=== PATIENT | female | born 1975 | race African-American/Black ===

== ENCOUNTER 2017-06-27 17:09 | Inpatient (IN) | payer MEDICAID, OTHER ==
[2017-06-27] VITALS (20 sets, daily range): BP systolic 54–172; BP diastolic 20–88
[~2017-06-27] VITALS: Ht 162.6 cm; Wt 81.6 kg
[2017-06-27] MEDS ORDERED: IPRATROPIUM BROMIDE (0.02%) 0.5MG/2.5ML NEB HHN STA (17:22)
[2017-06-27] MEDS ORDERED: ALBUTEROL (0.083%) 2.5MG/3ML NEB HHN STA (17:22)
[2017-06-27] MEDS ORDERED: ETOMIDATE 2MG/ML 10ML VIAL IV ONE ×2 (17:30→20:00)
[2017-06-27] MEDS ORDERED: PIPERACILLIN SODIUM/TAZOBACTAM 4.5 G in DEXT 5% WATER 100 ML IV SCH (17:30)
[2017-06-27] MEDS ORDERED: MIDAZOLAM HCL 50 MG in DEXTROSE 5% WATER 40 ML IV ONE ×2 (17:30→21:00)
[2017-06-27] MEDS ORDERED: VANCOMYCIN 1 G PREMIX 200 ML IV SCH (17:30)
[2017-06-27] MEDS ORDERED: VECURONIUM BROMIDE 10 MG/VIAL IV ONE ×2 (17:30→20:00)
[2017-06-27 18:00] LABS: CHLORIDE 103 mEq/L (98-107)
[2017-06-27 18:01] LABS: INR 1.7; PROTHROMBIN TIME 17.6 sec (9.4-11.6)
[2017-06-27 18:10] LABS: CARBON DIOXIDE 22 mEq/L (21-32); TROPONIN I < 0.02 ng/mL (0.00-0.04)
[2017-06-27] MEDS ORDERED: NOREPINEPHRINE 4 MG in DEXT 5% WATER 246 ML IV ONE (19:00)
[2017-06-27] MEDS ORDERED: SODIUM CHLORIDE 0.9% 1000ML BAG (SEPSIS BOLUS) IV ONE (19:00)
[2017-06-27] MEDS ORDERED: SODIUM CHLORIDE 0.9% 1,000 ML IV ONE (19:00)
[2017-06-27 19:02] LABS: BG BASE EXCESS -6.3 mmol/L (-2.0-2.0); BG CARBOXYHEMOGLOBIN 0.3 % (0.5-1.5); BG DEOXYHEMOGLOBIN 1.8 % (0.0-5.0); BG FRACTION INSPIRED OXYGEN 100; BG HCO3 ACT 20.5 mmol/L (22.0-26.0); BG METHEMOGLOBIN 0.7 % (0.0-1.5); BG OXYGEN SATURATION 98.2 % (92.0-98.5); BG OXYHEMOGLOBIN 97.2 % (94.0-97.0); BG PCO2 48.4 mmHg (35.0-45.0); BG PH 7.245 (7.350-7.450); BG PO2 139.2 mmHg (75.0-100.0); BG SAMPLE SITE RIGHT RADIAL; BG TIDAL VOLUME(mL) 550 mL; BG TOTAL HEMOGLOBIN 6.8 g/dL (12.0-18.0); BG VENT MODE VENT - A/C; BG VENT RATE 16 set
[2017-06-27] MEDS ORDERED: NOREPINEPHRINE 4 MG in DEXT 5% WATER 246 ML IV NR (19:15)
[2017-06-27 19:19] LABS: MEAN CORPUSCULAR HEMOGLOBIN 30.5 pg (28.0-32.0); RED BLOOD CELL COUNT 1.92 mill/uL (4.2-5.4); RED CELL DISTRIBUTION WIDTH 14.2 % (11.6-14.6)
[2017-06-27 19:23] LABS: CLARITY URINE CLOUDY (CLEAR); COLOR URINE DARK YELLOW (YELLOW); GLUCOSE URINE NEGATIVE (NEGATIVE); KETONES URINE 1+ (NEGATIVE); LEUKOCYTE ESTERASE URINE 2+ (NEGATIVE); NITRITE URINE POSITIVE (NEGATIVE); OCCULT BLOOD URINE 1+ (NEGATIVE); PROTEIN URINE 2+ (NEGATIVE); SPECIFIC GRAVITY URINE 1.017 (1.005-1.030)
[2017-06-27 19:26] LABS: HEMATOCRIT. 17.7 % (36.0-48.0)
[2017-06-27 19:27] LABS: HEMOGLOBIN. 5.9 g/dL (12.0-16.0); PLATELET 17 x1000/uL (130-400)
[2017-06-27] MEDS ORDERED: MIDAZOLAM HCL 50 MG in DEXTROSE 5% WATER 50ML IV SCH (20:45)
[2017-06-27 20:59] LABS: PLATELET ESTIMATE MARKEDLY DECREASED
[2017-06-27] MEDS ORDERED: MORPHINE SULFATE 4 MG/ML CPJ (NOT FOR IM USE) IV PRN (22:30)
[2017-06-27] MEDS: PROPOFOL 10MG/ML 100ML 100 ML IV PRN (22:32)
[2017-06-27] MEDS: SODIUM CHLORIDE 0.9% 1,000 ML IV SCH (23:25)
[2017-06-27] MEDS: PHENYLEPHRINE 40 MG in DEXT 5% WATER 246 ML IV PRN (23:30)
[2017-06-28] VITALS (101 sets, daily range): BP systolic 59–121; BP diastolic 25–79
[2017-06-28] MEDS: PHENYLEPHRINE 40 MG in DEXT 5% WATER 246 ML IV PRN ×5 (03:29→20:34)
[2017-06-28 05:48] LABS: HEMATOCRIT. 32.1 % (36.0-48.0); HEMOGLOBIN. 10.9 g/dL (12.0-16.0); MEAN CORPUSCULAR HEMOGLOBIN 30.3 pg (28.0-32.0); MEAN CORPUSCULAR VOLUME 89.3 fL (81.0-99.0); RED BLOOD CELL COUNT 3.59 mill/uL (4.2-5.4); RED CELL DISTRIBUTION WIDTH 15.4 % (11.6-14.6)
[2017-06-28 06:05] LABS: PLATELET 11 x1000/uL (130-400)
[2017-06-28 06:36] LABS: CHLORIDE 104 mEq/L (98-107)
[2017-06-28] MEDS ORDERED: PIPERACILLIN SODIUM/TAZOBACTAM 4.5 G in DEXT 5% WATER 100 ML IV SCH (06:45)
[2017-06-28] MEDS ORDERED: METRONIDAZOLE 500 MG PREMIX 100 ML IV SCH (06:45)
[2017-06-28 07:05] LABS: CARBON DIOXIDE 19 mEq/L (21-32)
[2017-06-28 07:10] LABS: PLATELET ESTIMATE MARKEDLY DECREASED
[2017-06-28] MEDS: NOREPINEPHRINE 8 MG in DEXT 5% WATER 242 ML IV PRN ×2 (07:34→15:27)
[2017-06-28 07:39] LABS: BG BASE EXCESS -6.3 mmol/L (-2.0-2.0); BG CARBOXYHEMOGLOBIN 0.3 % (0.5-1.5); BG DEOXYHEMOGLOBIN 1.3 % (0.0-5.0); BG FRACTION INSPIRED OXYGEN 100; BG HCO3 ACT 20.3 mmol/L (22.0-26.0); BG METHEMOGLOBIN 0.6 % (0.0-1.5); BG OXYGEN SATURATION 98.7 % (92.0-98.5); BG OXYHEMOGLOBIN 97.8 % (94.0-97.0); BG PCO2 44.8 mmHg (35.0-45.0); BG PH 7.274 (7.350-7.450); BG PO2 154.6 mmHg (75.0-100.0); BG SAMPLE SITE RIGHT BRACHIAL; BG TIDAL VOLUME(mL) 550 mL; BG TOTAL HEMOGLOBIN 11.8 g/dL (12.0-18.0); BG VENT MODE VENT - A/C; BG VENT RATE 16 set
[2017-06-28] MEDS: PROPOFOL 10MG/ML 100ML 100 ML IV PRN (08:38)
[2017-06-28] MEDS: SODIUM CHLORIDE 0.9% 1,000 ML IV SCH ×3 (08:39→22:16)
[2017-06-28] MEDS ORDERED: VANCOMYCIN 1250MG in DEXTROSE 5% WATER 250ML IV NR (09:00)
[2017-06-28] MEDS: MEROPENEM 1,000 MG in SODIUM CHLORIDE 0.9% 100 ML IV SCH ×2 (11:15→17:51)
[2017-06-28] MEDS ORDERED: PROPOFOL 10MG/ML 100ML 100 ML IV PRN (11:15)
[2017-06-28] MEDS: PANTOPRAZOLE SODIUM 40 MG/VIAL IV SCH (12:24)
[2017-06-28] MEDS: IPRATROPIUM/ALBUTEROL 0.5-3(2.5)MG/3ML NEB HHN SCH ×2 (15:35→19:58)
[2017-06-28] MEDS: VANCOMYCIN 750 MG PREMIX 150 ML IV SCH (16:35)
[2017-06-28] MEDS: MORPHINE SULFATE 2 MG/ML CPJ (NOT FOR IM USE) IV PRN (19:31)
[2017-06-29] VITALS (101 sets, daily range): BP systolic 86–143; BP diastolic 51–136
[2017-06-29] MEDS: VANCOMYCIN 750 MG PREMIX 150 ML IV SCH ×2 (00:45→09:14)
[2017-06-29] MEDS: HYDROMORPHONE HCL/PF 2MG/ML CPJ IM PRN ×3 (00:46→19:44)
[2017-06-29] MEDS: PHENYLEPHRINE 40 MG in DEXT 5% WATER 246 ML IV PRN ×6 (01:06→21:45)
[2017-06-29] MEDS: MEROPENEM 1,000 MG in SODIUM CHLORIDE 0.9% 100 ML IV SCH ×3 (02:00→18:59)
[2017-06-29] MEDS: PROPOFOL 10MG/ML 100ML 100 ML IV PRN ×2 (02:01→10:09)
[2017-06-29] MEDS: IPRATROPIUM/ALBUTEROL 0.5-3(2.5)MG/3ML NEB HHN SCH ×4 (02:20→20:30)
[2017-06-29 07:09] LABS: HEMATOCRIT. 29.8 % (36.0-48.0); MEAN CORPUSCULAR HEMOGLOBIN 29.7 pg (28.0-32.0); MEAN CORPUSCULAR VOLUME 87.9 fL (81.0-99.0); MEAN PLATELET VOLUME 8.9 fl (7.4-10.4); RED BLOOD CELL COUNT 3.39 mill/uL (4.2-5.4); RED CELL DISTRIBUTION WIDTH 15.5 % (11.6-14.6)
[2017-06-29 07:17] LABS: PLATELET 11 x1000/uL (130-400)
[2017-06-29 07:20] LABS: CARBON DIOXIDE 18 mEq/L (21-32); CHLORIDE 103 mEq/L (98-107)
[2017-06-29 08:27] LABS: BG BASE EXCESS -8.6 mmol/L (-2.0-2.0); BG CARBOXYHEMOGLOBIN 0.3 % (0.5-1.5); BG DEOXYHEMOGLOBIN 5.2 % (0.0-5.0); BG FRACTION INSPIRED OXYGEN 50; BG METHEMOGLOBIN 0.4 % (0.0-1.5); BG OXYGEN SATURATION 94.8 % (92.0-98.5); BG OXYHEMOGLOBIN 94.1 % (94.0-97.0); BG PCO2 35.5 mmHg (35.0-45.0); BG PH 7.298 (7.350-7.450); BG PO2 74.6 mmHg (75.0-100.0); BG SAMPLE SITE RIGHT BRACHIAL; BG TIDAL VOLUME(mL) 550 mL; BG TOTAL HEMOGLOBIN 11.1 g/dL (12.0-18.0); BG VENT MODE VENT - A/C; BG VENT RATE 16 set
[2017-06-29 08:31] LABS: PHOSPHORUS 3.3 mg/dL (2.5-4.9)
[2017-06-29] MEDS: PANTOPRAZOLE SODIUM 40 MG/VIAL IV SCH (09:13)
[2017-06-29] MEDS ORDERED: LORAZEPAM 2MG/ML CPJ IV PRN (10:30)
[2017-06-29] MEDS: NOREPINEPHRINE 8 MG in DEXT 5% WATER 242 ML IV PRN (12:06)
[2017-06-29 12:25] LABS: PLATELET ESTIMATE MARKEDLY DECREASED
[2017-06-29] MEDS ORDERED: MAGNESIUM 2 G PREMIX 50 ML IV NR (13:00)
[2017-06-29] MEDS ORDERED: KCL 20MEQ/100ML PREMIX 100 ML IV NR (13:00)
[2017-06-29] MEDS: SODIUM CHLORIDE 0.9% 1,000 ML IV SCH (14:25)
[2017-06-29] MEDS: FENTANYL CITRATE/PF 500 MCG in SODIUM CHLORIDE 0.9% 40 ML IV PRN (15:11)
[2017-06-30] VITALS (97 sets, daily range): BP systolic 89–131; BP diastolic 58–88
[2017-06-30] MEDS: FENTANYL CITRATE/PF 500 MCG in SODIUM CHLORIDE 0.9% 40 ML IV PRN ×3 (00:15→16:52)
[2017-06-30] MEDS: MEROPENEM 1,000 MG in SODIUM CHLORIDE 0.9% 100 ML IV SCH ×3 (01:34→17:26)
[2017-06-30] MEDS: SODIUM CHLORIDE 0.9% 1,000 ML IV SCH ×3 (01:34→21:42)
[2017-06-30] MEDS: IPRATROPIUM/ALBUTEROL 0.5-3(2.5)MG/3ML NEB HHN SCH ×4 (01:34→20:29)
[2017-06-30] MEDS: PHENYLEPHRINE 40 MG in DEXT 5% WATER 246 ML IV PRN ×6 (01:42→21:38)
[2017-06-30] MEDS: HYDROMORPHONE HCL/PF 2MG/ML CPJ IM PRN (03:19)
[2017-06-30 04:55] LABS: HEMATOCRIT. 31.3 % (36.0-48.0); HEMOGLOBIN. 10.6 g/dL (12.0-16.0); MEAN CORPUSCULAR HEMOGLOBIN 29.9 pg (28.0-32.0); MEAN CORPUSCULAR VOLUME 88.8 fL (81.0-99.0); MEAN PLATELET VOLUME 9.3 fl (7.4-10.4); RED BLOOD CELL COUNT 3.53 mill/uL (4.2-5.4); RED CELL DISTRIBUTION WIDTH 15.5 % (11.6-14.6)
[2017-06-30 05:04] LABS: PLATELET 4 x1000/uL (130-400)
[2017-06-30 05:06] LABS: CARBON DIOXIDE 20 mEq/L (21-32); CHLORIDE 105 mEq/L (98-107)
[2017-06-30 07:24] LABS: PLATELET ESTIMATE MARKEDLY DECREASED
[2017-06-30 07:39] LABS: BG BASE EXCESS -8.2 mmol/L (-2.0-2.0); BG CARBOXYHEMOGLOBIN 0.1 % (0.5-1.5); BG DEOXYHEMOGLOBIN 2.4 % (0.0-5.0); BG HCO3 ACT 17.2 mmol/L (22.0-26.0); BG METHEMOGLOBIN 0.4 % (0.0-1.5); BG OXYGEN SATURATION 97.6 % (92.0-98.5); BG OXYHEMOGLOBIN 97.1 % (94.0-97.0); BG PCO2 34.7 mmHg (35.0-45.0); BG PH 7.312 (7.350-7.450); BG PO2 106.1 mmHg (75.0-100.0); BG SAMPLE SITE RIGHT BRACHIAL; BG TIDAL VOLUME(mL) 550 mL; BG VENT MODE VENT - A/C; BG VENT RATE 16 set
[2017-06-30] MEDS: PANTOPRAZOLE SODIUM 40 MG/VIAL IV SCH (09:39)
[2017-06-30] MEDS: MORPHINE SULFATE 2 MG/ML CPJ (NOT FOR IM USE) IV PRN (23:13)
[2017-07-01] VITALS (93 sets, daily range): BP systolic 87–113; BP diastolic 46–75
[2017-07-01] MEDS: PHENYLEPHRINE 40 MG in DEXT 5% WATER 246 ML IV PRN ×6 (01:52→23:17)
[2017-07-01] MEDS: MEROPENEM 1,000 MG in SODIUM CHLORIDE 0.9% 100 ML IV SCH ×3 (02:04→17:33)
[2017-07-01] MEDS: IPRATROPIUM/ALBUTEROL 0.5-3(2.5)MG/3ML NEB HHN SCH ×4 (02:24→20:28)
[2017-07-01] MEDS: FENTANYL CITRATE/PF 500 MCG in SODIUM CHLORIDE 0.9% 40 ML IV PRN ×3 (03:51→21:26)
[2017-07-01] MEDS: MORPHINE SULFATE 2 MG/ML CPJ (NOT FOR IM USE) IV PRN ×2 (05:05→23:25)
[2017-07-01 05:42] LABS: HEMATOCRIT. 27.3 % (36.0-48.0); HEMOGLOBIN. 9.4 g/dL (12.0-16.0); MEAN CORPUSCULAR HEMOGLOBIN 30.5 pg (28.0-32.0); MEAN CORPUSCULAR VOLUME 88.4 fL (81.0-99.0); MEAN PLATELET VOLUME 10.2 fl (7.4-10.4); RED BLOOD CELL COUNT 3.08 mill/uL (4.2-5.4); RED CELL DISTRIBUTION WIDTH 15.2 % (11.6-14.6)
[2017-07-01 05:47] LABS: PLATELET 10 x1000/uL (130-400)
[2017-07-01 06:08] LABS: CARBON DIOXIDE 20 mEq/L (21-32); CHLORIDE 108 mEq/L (98-107)
[2017-07-01 06:56] LABS: PLATELET ESTIMATE MARKEDLY DECREASED
[2017-07-01] MEDS: PANTOPRAZOLE SODIUM 40 MG/VIAL IV SCH (08:41)
[2017-07-01] MEDS: SODIUM CHLORIDE 0.9% 1,000 ML IV SCH ×3 (08:41→21:55)
[2017-07-01] MEDS ORDERED: POTASSIUM CHLORIDE INJ 40 MEQ in DEXT 5% WATER 250 ML IV SCH (13:00)
[2017-07-02] VITALS (96 sets, daily range): BP systolic 71–124; BP diastolic 42–84
[2017-07-02] MEDS: MEROPENEM 1,000 MG in SODIUM CHLORIDE 0.9% 100 ML IV SCH ×2 (01:43→10:27)
[2017-07-02] MEDS: IPRATROPIUM/ALBUTEROL 0.5-3(2.5)MG/3ML NEB HHN SCH ×4 (02:34→20:20)
[2017-07-02] MEDS: FENTANYL CITRATE/PF 1,000 MCG in SODIUM CHLORIDE 0.9% 80 ML IV PRN ×2 (03:12→12:42)
[2017-07-02] MEDS: PHENYLEPHRINE 40 MG in DEXT 5% WATER 246 ML IV PRN ×5 (03:58→21:29)
[2017-07-02] MEDS: HYDROMORPHONE HCL/PF 2MG/ML CPJ IM PRN (06:21)
[2017-07-02] MEDS: SODIUM CHLORIDE 0.9% 1,000 ML IV SCH (08:01)
[2017-07-02] MEDS: MORPHINE SULFATE 2 MG/ML CPJ (NOT FOR IM USE) IV PRN (08:02)
[2017-07-02] MEDS: PANTOPRAZOLE SODIUM 40 MG/VIAL IV SCH (08:03)
[2017-07-02 08:33] LABS: BG BASE EXCESS -7.2 mmol/L (-2.0-2.0); BG DEOXYHEMOGLOBIN 1.5 % (0.0-5.0); BG FRACTION INSPIRED OXYGEN 40; BG HCO3 ACT 17.8 mmol/L (22.0-26.0); BG METHEMOGLOBIN 0.4 % (0.0-1.5); BG OXYGEN SATURATION 98.5 % (92.0-98.5); BG OXYHEMOGLOBIN 98.1 % (94.0-97.0); BG PCO2 33.8 mmHg (35.0-45.0); BG PO2 136.4 mmHg (75.0-100.0); BG SAMPLE SITE RIGHT RADIAL; BG TIDAL VOLUME(mL) 550 mL; BG TOTAL HEMOGLOBIN 9.1 g/dL (12.0-18.0); BG VENT MODE VENT - A/C; BG VENT RATE 16 set
[2017-07-02 09:10] LABS: HEMATOCRIT 24.8 % (36.0-48.0); HEMOGLOBIN 8.4 g/dL (12.0-16.0); MEAN CORPUSCULAR HEMOGLOBIN 30.1 pg (28.0-32.0); MEAN CORPUSCULAR VOLUME 88.9 fL (81.0-99.0); RED BLOOD CELL COUNT 2.78 mill/uL (4.2-5.4); RED CELL DISTRIBUTION WIDTH 14.8 % (11.6-14.6)
[2017-07-02 09:20] LABS: PLATELET 11 x1000/uL (130-400)
[2017-07-02 09:30] LABS: CARBON DIOXIDE 19 mEq/L (21-32); CHLORIDE 111 mEq/L (98-107); PHOSPHORUS 3.1 mg/dL (2.5-4.9)
[2017-07-02] MEDS: HYDROMORPHONE HCL/PF 2MG/ML CPJ IV PRN ×2 (11:25→16:51)
[2017-07-02] MEDS ORDERED: MAGNESIUM 2 G PREMIX 50 ML IV NR (13:00)
[2017-07-02] MEDS: AMIKACIN 500MG in SODIUM CHLORIDE 0.9% 100ML IV SCH ×2 (13:27→23:04)
[2017-07-02] MEDS ORDERED: POTASSIUM CHLORIDE INJ 40 MEQ in DEXT 5% WATER 250 ML IV NR (14:00)
[2017-07-02 15:04] LABS: PREALBUMIN < 3.0 mg/dL (20.0-40.0)
[2017-07-02] MEDS: MEROPENEM 1000MG in NORMAL SALINE 100ML IV SCH (17:23)
[2017-07-02 17:46] LABS: INR 1.5; PARTIAL THROMBOPLASTIN TIME 45.4 sec (23.4-31.0); PROTHROMBIN TIME 15.7 sec (9.4-11.6)
[2017-07-02] MEDS ORDERED: DEXTROSE 50% WATER 50ML SYRINGE IV PRN (18:00)
[2017-07-02] MEDS: BLOOD SUGAR DIAGNOSTIC STRIP TEST SCH (18:00)
[2017-07-02] MEDS ORDERED: INSULIN LISPRO (MEDIUM DOSE) 100 UNITS/ML SUBCUT SCH (18:20)
[2017-07-02] MEDS ORDERED: METRONIDAZOLE 500 MG PREMIX 100 ML IV SCH (21:00)
[2017-07-02] MEDS: TOTAL PARENTERAL NUTRITION 1,000 ML IV SCH (21:34)
[2017-07-02] MEDS: CEFEPIME 2,000 MG in DEXT 5% WATER 100 ML IV SCH (22:02)
[2017-07-03] VITALS (99 sets, daily range): BP systolic 82–140; BP diastolic 25–87
[2017-07-03] MEDS: BLOOD SUGAR DIAGNOSTIC STRIP TEST SCH ×4 (00:26→18:38)
[2017-07-03] MEDS: INSULIN LISPRO (MEDIUM DOSE) 100 UNITS/ML SUBCUT SCH ×4 (00:33→18:46)
[2017-07-03] MEDS: FENTANYL CITRATE/PF 1,000 MCG in SODIUM CHLORIDE 0.9% 80 ML IV PRN ×3 (00:39→20:43)
[2017-07-03] MEDS ORDERED: PHENYLEPHRINE 80 MG in DEXT 5% WATER 500 ML IV PRN (00:45)
[2017-07-03] MEDS: MEROPENEM 1000MG in NORMAL SALINE 100ML IV SCH ×3 (02:02→18:41)
[2017-07-03] MEDS: IPRATROPIUM/ALBUTEROL 0.5-3(2.5)MG/3ML NEB HHN SCH ×4 (02:37→20:33)
[2017-07-03] MEDS: CEFEPIME 2,000 MG in DEXT 5% WATER 100 ML IV SCH ×3 (05:06→22:58)
[2017-07-03] MEDS: HYDROMORPHONE HCL/PF 2MG/ML CPJ IV PRN ×4 (05:07→19:50)
[2017-07-03 05:50] LABS: HEMATOCRIT. 22.3 % (36.0-48.0); HEMOGLOBIN. 7.5 g/dL (12.0-16.0); MEAN CORPUSCULAR HEMOGLOBIN 30.4 pg (28.0-32.0); MEAN CORPUSCULAR VOLUME 90.1 fL (81.0-99.0); MEAN PLATELET VOLUME 10.4 fl (7.4-10.4); RED BLOOD CELL COUNT 2.47 mill/uL (4.2-5.4); RED CELL DISTRIBUTION WIDTH 15.2 % (11.6-14.6)
[2017-07-03 06:16] LABS: CARBON DIOXIDE 18 mEq/L (21-32); CHLORIDE 112 mEq/L (98-107)
[2017-07-03 07:24] LABS: PLATELET ESTIMATE MARKEDLY DECREASED
[2017-07-03 07:25] LABS: PLATELET 3 x1000/uL (130-400)
[2017-07-03] MEDS: PANTOPRAZOLE SODIUM 40 MG/VIAL IV SCH (09:01)
[2017-07-03] MEDS: AMIKACIN 500MG in SODIUM CHLORIDE 0.9% 100ML IV SCH (09:26)
[2017-07-03] MEDS: TOTAL PARENTERAL NUTRITION 1,000 ML IV SCH (10:52)
[2017-07-03] MEDS: PHENYLEPHRINE 80 MG in DEXT 5% WATER 492 ML IV PRN (13:33)
[2017-07-03] MEDS ORDERED: KCL 20MEQ/100ML PREMIX 100 ML IV NR (18:00)
[2017-07-03] MEDS ORDERED: FAT EMULSIONS 250 ML IV SCH (21:00)
[2017-07-04] VITALS (93 sets, daily range): BP systolic 78–127; BP diastolic 24–101
[2017-07-04] MEDS: BLOOD SUGAR DIAGNOSTIC STRIP TEST SCH ×4 (00:09→18:00)
[2017-07-04] MEDS: TOTAL PARENTERAL NUTRITION 1,000 ML IV SCH ×3 (00:12→21:23)
[2017-07-04] MEDS: MEROPENEM 1000MG in NORMAL SALINE 100ML IV SCH ×3 (01:04→18:46)
[2017-07-04] MEDS: PHENYLEPHRINE 80 MG in DEXT 5% WATER 492 ML IV PRN ×2 (01:05→21:22)
[2017-07-04] MEDS: IPRATROPIUM/ALBUTEROL 0.5-3(2.5)MG/3ML NEB HHN SCH ×4 (02:17→20:33)
[2017-07-04] MEDS: AMIKACIN 500MG in SODIUM CHLORIDE 0.9% 100ML IV SCH ×2 (02:38→21:22)
[2017-07-04] MEDS: INSULIN LISPRO (MEDIUM DOSE) 100 UNITS/ML SUBCUT SCH ×4 (05:16→18:00)
[2017-07-04] MEDS: CEFEPIME 2,000 MG in DEXT 5% WATER 100 ML IV SCH ×3 (05:21→23:00)
[2017-07-04] MEDS: HYDROMORPHONE HCL/PF 2MG/ML CPJ IV PRN ×2 (05:21→20:21)
[2017-07-04 06:49] LABS: CHLORIDE 111 mEq/L (98-107)
[2017-07-04 06:56] LABS: CARBON DIOXIDE 17 mEq/L (21-32)
[2017-07-04 07:43] LABS: HEMATOCRIT. 22.3 % (36.0-48.0); HEMOGLOBIN. 7.4 g/dL (12.0-16.0); MEAN CORPUSCULAR HEMOGLOBIN 30.8 pg (28.0-32.0); MEAN CORPUSCULAR VOLUME 92.8 fL (81.0-99.0); MEAN PLATELET VOLUME 10.6 fl (7.4-10.4); RED CELL DISTRIBUTION WIDTH 15.3 % (11.6-14.6)
[2017-07-04] MEDS: FENTANYL CITRATE/PF 1,000 MCG in SODIUM CHLORIDE 0.9% 80 ML IV PRN ×2 (08:17→18:33)
[2017-07-04] MEDS: PANTOPRAZOLE SODIUM 40 MG/VIAL IV SCH (08:56)
[2017-07-04] MEDS ORDERED: MAGNESIUM 2 G PREMIX 50 ML IV SCH (09:00)
[2017-07-04 09:10] LABS: PLATELET 41 x1000/uL (130-400)
[2017-07-04] MEDS ORDERED: POTASSIUM CHLORIDE INJ 40 MEQ in DEXT 5% WATER 250 ML IV SCH (10:00)
[2017-07-04 12:31] LABS: PLATELET ESTIMATE MARKEDLY DECREASED
[2017-07-04] MEDS ORDERED: TOTAL PARENTERAL NUTRITION 1,000 ML IV SCH (15:15)
[2017-07-05] VITALS (105 sets, daily range): BP systolic 83–144; BP diastolic 23–128
[2017-07-05] MEDS: IPRATROPIUM/ALBUTEROL 0.5-3(2.5)MG/3ML NEB HHN SCH ×4 (01:55→20:49)
[2017-07-05] MEDS: MEROPENEM 1000MG in NORMAL SALINE 100ML IV SCH ×3 (02:28→18:20)
[2017-07-05] MEDS: HYDROMORPHONE HCL/PF 2MG/ML CPJ IV PRN ×4 (02:28→18:10)
[2017-07-05] MEDS: BLOOD SUGAR DIAGNOSTIC STRIP TEST SCH ×3 (05:23→12:00)
[2017-07-05] MEDS: INSULIN LISPRO (MEDIUM DOSE) 100 UNITS/ML SUBCUT SCH ×3 (05:23→12:00)
[2017-07-05] MEDS: CEFEPIME 2,000 MG in DEXT 5% WATER 100 ML IV SCH ×3 (05:25→21:32)
[2017-07-05] MEDS: FENTANYL CITRATE/PF 1,000 MCG in SODIUM CHLORIDE 0.9% 80 ML IV PRN ×3 (05:29→22:28)
[2017-07-05] MEDS: PHENYLEPHRINE 80 MG in DEXT 5% WATER 492 ML IV PRN ×2 (07:20→17:06)
[2017-07-05 08:53] LABS: BG BASE EXCESS -6.8 mmol/L (-2.0-2.0); BG CARBOXYHEMOGLOBIN 0.7 % (0.5-1.5); BG DEOXYHEMOGLOBIN 2.4 % (0.0-5.0); BG FRACTION INSPIRED OXYGEN 30; BG HCO3 ACT 18.9 mmol/L (22.0-26.0); BG METHEMOGLOBIN 0.6 % (0.0-1.5); BG OXYGEN SATURATION 97.6 % (92.0-98.5); BG OXYHEMOGLOBIN 96.3 % (94.0-97.0); BG PCO2 38.5 mmHg (35.0-45.0); BG PH 7.309 (7.350-7.450); BG PO2 107.6 mmHg (75.0-100.0); BG SAMPLE SITE RIGHT RADIAL; BG TIDAL VOLUME(mL) 550 mL; BG TOTAL HEMOGLOBIN 6.6 g/dL (12.0-18.0); BG VENT MODE VENT - A/C; BG VENT RATE 16 set
[2017-07-05] MEDS: PANTOPRAZOLE SODIUM 40 MG/VIAL IV SCH (09:08)
[2017-07-05 10:28] LABS: BASOPHILS % 0.1 % (0.0-2.0); EOSINOPHILS % 0.2 % (0.0-5.0); LYMPHOCYTES % 7.9 % (20.0-50.0); MEAN CORPUSCULAR HEMOGLOBIN 30.5 pg (28.0-32.0); MEAN CORPUSCULAR VOLUME 91.8 fL (81.0-99.0); MEAN PLATELET VOLUME 9.9 fl (7.4-10.4); MONOCYTES % 4.4 % (2.0-8.0); NEUTROPHILS % 87.4 % (40.0-76.0); RED BLOOD CELL COUNT 1.98 mill/uL (4.2-5.4); RED CELL DISTRIBUTION WIDTH 14.8 % (11.6-14.6)
[2017-07-05 10:34] LABS: CARBON DIOXIDE 20 mEq/L (21-32); CHLORIDE 109 mEq/L (98-107)
[2017-07-05 10:42] LABS: HEMATOCRIT. 18.2 % (36.0-48.0)
[2017-07-05 10:43] LABS: PLATELET 3 x1000/uL (130-400)
[2017-07-05 11:07] LABS: PLATELET ESTIMATE MARKEDLY DECREASED
[2017-07-05] MEDS ORDERED: KCL 20MEQ/100ML PREMIX 100 ML IV SCH (13:30)
[2017-07-05] MEDS: AMIKACIN 500MG in SODIUM CHLORIDE 0.9% 100ML IV SCH (16:16)
[2017-07-05] MEDS: TOTAL PARENTERAL NUTRITION 1,000 ML IV SCH ×2 (16:17→23:00)
[2017-07-06] VITALS (92 sets, daily range): BP systolic 85–176; BP diastolic 17–75
[2017-07-06] MEDS: HYDROMORPHONE HCL/PF 2MG/ML CPJ IV PRN ×5 (00:44→23:36)
[2017-07-06] MEDS: PHENYLEPHRINE 80 MG in DEXT 5% WATER 492 ML IV PRN ×2 (01:24→10:00)
[2017-07-06] MEDS: MEROPENEM 1000MG in NORMAL SALINE 100ML IV SCH ×3 (01:24→18:41)
[2017-07-06] MEDS: IPRATROPIUM/ALBUTEROL 0.5-3(2.5)MG/3ML NEB HHN SCH ×4 (02:17→20:10)
[2017-07-06 04:58] LABS: HEMATOCRIT. 26.4 % (36.0-48.0); MEAN CORPUSCULAR HEMOGLOBIN 30.1 pg (28.0-32.0); MEAN CORPUSCULAR VOLUME 88.7 fL (81.0-99.0); MEAN PLATELET VOLUME 8.7 fl (7.4-10.4); RED BLOOD CELL COUNT 2.98 mill/uL (4.2-5.4); RED CELL DISTRIBUTION WIDTH 16.5 % (11.6-14.6)
[2017-07-06 05:11] LABS: CARBON DIOXIDE 20 mEq/L (21-32); CHLORIDE 111 mEq/L (98-107)
[2017-07-06] MEDS: CEFEPIME 2,000 MG in DEXT 5% WATER 100 ML IV SCH ×3 (05:13→22:14)
[2017-07-06 05:26] LABS: PLATELET 17 x1000/uL (130-400)
[2017-07-06] MEDS: FENTANYL CITRATE/PF 1,000 MCG in SODIUM CHLORIDE 0.9% 80 ML IV PRN ×2 (07:55→16:24)
[2017-07-06] MEDS ORDERED: PHYTONADIONE 10MG/ML AMP SUBCUT SCH (09:00)
[2017-07-06] MEDS: AMIKACIN 500MG in SODIUM CHLORIDE 0.9% 100ML IV SCH (09:04)
[2017-07-06] MEDS: ACETAMINOPHEN 650MG SUPP PR PRN (12:38)
[2017-07-06 12:54] LABS: PLATELET ESTIMATE MARKEDLY DECREASED
[2017-07-06] MEDS: TOTAL PARENTERAL NUTRITION 1,000 ML IV SCH ×2 (13:15→22:13)
[2017-07-06] MEDS ORDERED: KCL 20MEQ/100ML PREMIX 100 ML IV NR (16:00)
[2017-07-06] MEDS ORDERED: FAT EMULSIONS 250 ML IV SCH (21:00)
[2017-07-07] VITALS (74 sets, daily range): BP systolic 62–138; BP diastolic 31–82
[2017-07-07] MEDS: PHENYLEPHRINE 80 MG in DEXT 5% WATER 492 ML IV PRN ×2 (00:32→16:35)
[2017-07-07] MEDS: IPRATROPIUM/ALBUTEROL 0.5-3(2.5)MG/3ML NEB HHN SCH ×3 (01:31→20:10)
[2017-07-07] MEDS: MEROPENEM 1000MG in NORMAL SALINE 100ML IV SCH ×3 (02:11→21:48)
[2017-07-07] MEDS: TOTAL PARENTERAL NUTRITION 1,000 ML IV SCH ×2 (02:14→11:53)
[2017-07-07] MEDS: HYDROMORPHONE HCL/PF 2MG/ML CPJ IV PRN ×4 (02:50→15:09)
[2017-07-07] MEDS: CEFEPIME 2,000 MG in DEXT 5% WATER 100 ML IV SCH ×3 (05:26→22:48)
[2017-07-07] MEDS: FENTANYL CITRATE/PF 1,000 MCG in SODIUM CHLORIDE 0.9% 80 ML IV PRN ×2 (09:14→16:56)
[2017-07-07] MEDS: ACETAMINOPHEN 650MG SUPP PR PRN (12:12)
[2017-07-07] MEDS ORDERED: FLUCONAZOLE 800 MG/400 ML IV NR (14:00)
[2017-07-07] MEDS: AMIKACIN SULFATE 750 MG in SODIUM CHLORIDE 0.9% 100 ML IV SCH (14:44)
[2017-07-07 16:48] LABS: CHLORIDE 110 mEq/L (98-107)
[2017-07-07 16:55] LABS: CARBON DIOXIDE 21 mEq/L (21-32)
[2017-07-07 16:59] LABS: HEMATOCRIT. 21.9 % (36.0-48.0); HEMOGLOBIN. 7.3 g/dL (12.0-16.0); MEAN CORPUSCULAR HEMOGLOBIN 29.8 pg (28.0-32.0); MEAN CORPUSCULAR VOLUME 89.9 fL (81.0-99.0); MEAN PLATELET VOLUME 9.6 fl (7.4-10.4); RED BLOOD CELL COUNT 2.44 mill/uL (4.2-5.4); RED CELL DISTRIBUTION WIDTH 16.4 % (11.6-14.6)
[2017-07-07 17:04] LABS: PLATELET 8 x1000/uL (130-400)
[2017-07-07 18:07] LABS: PLATELET ESTIMATE MARKEDLY DECREASED
[2017-07-08] VITALS (100 sets, daily range): BP systolic 94–135; BP diastolic 55–85
[2017-07-08] MEDS: TOTAL PARENTERAL NUTRITION 1,000 ML IV SCH ×2 (00:41→13:39)
[2017-07-08] MEDS: FENTANYL CITRATE/PF 1,000 MCG in SODIUM CHLORIDE 0.9% 80 ML IV PRN ×4 (00:43→20:45)
[2017-07-08] MEDS: MEROPENEM 1000MG in NORMAL SALINE 100ML IV SCH ×3 (01:22→17:38)
[2017-07-08] MEDS: IPRATROPIUM/ALBUTEROL 0.5-3(2.5)MG/3ML NEB HHN SCH ×4 (02:00→20:22)
[2017-07-08] MEDS: PHENYLEPHRINE 80 MG in DEXT 5% WATER 492 ML IV PRN ×2 (02:38→16:31)
[2017-07-08] MEDS: CEFEPIME 2,000 MG in DEXT 5% WATER 100 ML IV SCH ×3 (05:04→20:02)
[2017-07-08] MEDS: HYDROMORPHONE HCL/PF 2MG/ML CPJ IV PRN ×3 (06:12→20:31)
[2017-07-08 06:50] LABS: BASOPHILS % 0.2 % (0.0-2.0); EOSINOPHILS % 0.5 % (0.0-5.0); MEAN CORPUSCULAR HEMOGLOBIN 30.3 pg (28.0-32.0); MEAN CORPUSCULAR VOLUME 88.7 fL (81.0-99.0); MEAN PLATELET VOLUME 8.3 fl (7.4-10.4); NEUTROPHILS % 87.3 % (40.0-76.0); RED BLOOD CELL COUNT 2.28 mill/uL (4.2-5.4); RED CELL DISTRIBUTION WIDTH 15.9 % (11.6-14.6)
[2017-07-08 06:54] LABS: HEMATOCRIT. 20.2 % (36.0-48.0); HEMOGLOBIN. 6.9 g/dL (12.0-16.0)
[2017-07-08 07:10] LABS: CARBON DIOXIDE 23 mEq/L (21-32); CHLORIDE 110 mEq/L (98-107)
[2017-07-08 08:06] LABS: BG BASE EXCESS -5.1 mmol/L (-2.0-2.0); BG CARBOXYHEMOGLOBIN 0.8 % (0.5-1.5); BG DEOXYHEMOGLOBIN 2.2 % (0.0-5.0); BG FRACTION INSPIRED OXYGEN 30; BG HCO3 ACT 19.4 mmol/L (22.0-26.0); BG METHEMOGLOBIN 0.5 % (0.0-1.5); BG OXYGEN SATURATION 97.8 % (92.0-98.5); BG OXYHEMOGLOBIN 96.5 % (94.0-97.0); BG PCO2 33.4 mmHg (35.0-45.0); BG PH 7.382 (7.350-7.450); BG PO2 103.1 mmHg (75.0-100.0); BG SAMPLE SITE RIGHT BRACHIAL; BG TIDAL VOLUME(mL) 550 mL; BG TOTAL HEMOGLOBIN 7.3 g/dL (12.0-18.0); BG VENT MODE VENT - A/C; BG VENT RATE 16 set
[2017-07-08 10:57] LABS: PLATELET ESTIMATE MARKEDLY DECREASED
[2017-07-08 10:58] LABS: PLATELET 24 x1000/uL (130-400)
[2017-07-08] MEDS: FLUCONAZOLE 400MG/200ML BAG 200 ML IV SCH (13:40)
[2017-07-09] VITALS (95 sets, daily range): BP systolic 93–134; BP diastolic 47–92
[2017-07-09] MEDS: HYDROMORPHONE HCL/PF 2MG/ML CPJ IV PRN ×7 (00:23→23:49)
[2017-07-09] MEDS: IPRATROPIUM/ALBUTEROL 0.5-3(2.5)MG/3ML NEB HHN SCH ×4 (02:01→20:35)
[2017-07-09] MEDS: MEROPENEM 1000MG in NORMAL SALINE 100ML IV SCH ×3 (02:07→18:27)
[2017-07-09] MEDS: TOTAL PARENTERAL NUTRITION 1,000 ML IV SCH ×2 (02:08→16:19)
[2017-07-09] MEDS: ACETAMINOPHEN 650MG SUPP PR PRN (03:08)
[2017-07-09] MEDS: FENTANYL CITRATE/PF 1,000 MCG in SODIUM CHLORIDE 0.9% 80 ML IV PRN ×3 (03:47→20:43)
[2017-07-09] MEDS: PHENYLEPHRINE 80 MG in DEXT 5% WATER 492 ML IV PRN ×2 (04:09→21:44)
[2017-07-09] MEDS: CEFEPIME 2,000 MG in DEXT 5% WATER 100 ML IV SCH ×3 (05:37→22:14)
[2017-07-09 06:24] LABS: CARBON DIOXIDE 20 mEq/L (21-32); CHLORIDE 112 mEq/L (98-107)
[2017-07-09 08:05] LABS: HEMOGLOBIN. 9.8 g/dL (12.0-16.0); MEAN CORPUSCULAR HEMOGLOBIN 30.9 pg (28.0-32.0); MEAN CORPUSCULAR VOLUME 91.5 fL (81.0-99.0); MEAN PLATELET VOLUME 12.9 fl (7.4-10.4); RED BLOOD CELL COUNT 3.17 mill/uL (4.2-5.4); RED CELL DISTRIBUTION WIDTH 15.4 % (11.6-14.6)
[2017-07-09 09:01] LABS: PLATELET 27 x1000/uL (130-400)
[2017-07-09 10:32] LABS: PLATELET ESTIMATE MARKEDLY DECREASED
[2017-07-09] MEDS: AMIKACIN SULFATE 750 MG in SODIUM CHLORIDE 0.9% 100 ML IV SCH (12:55)
[2017-07-09] MEDS: FLUCONAZOLE 400MG/200ML BAG 200 ML IV SCH (13:40)
[2017-07-10] VITALS (82 sets, daily range): BP systolic 88–138; BP diastolic 51–91
[2017-07-10] MEDS: IPRATROPIUM/ALBUTEROL 0.5-3(2.5)MG/3ML NEB HHN SCH ×4 (02:19→14:19)
[2017-07-10] MEDS: MEROPENEM 1000MG in NORMAL SALINE 100ML IV SCH ×3 (02:43→17:49)
[2017-07-10] MEDS: FENTANYL CITRATE/PF 1,000 MCG in SODIUM CHLORIDE 0.9% 80 ML IV PRN ×3 (03:48→17:44)
[2017-07-10] MEDS: HYDROMORPHONE HCL/PF 2MG/ML CPJ IV PRN ×6 (04:43→23:27)
[2017-07-10] MEDS: CEFEPIME 2,000 MG in DEXT 5% WATER 100 ML IV SCH ×2 (05:56→14:13)
[2017-07-10] MEDS: TOTAL PARENTERAL NUTRITION 1,000 ML IV SCH (06:20)
[2017-07-10 06:27] LABS: BASOPHILS % 0.3 % (0.0-2.0); EOSINOPHILS % 0.5 % (0.0-5.0); HEMATOCRIT. 29.1 % (36.0-48.0); HEMOGLOBIN. 9.9 g/dL (12.0-16.0); MEAN CORPUSCULAR HEMOGLOBIN 30.6 pg (28.0-32.0); MEAN CORPUSCULAR VOLUME 90.2 fL (81.0-99.0); MONOCYTES % 2.8 % (2.0-8.0); NEUTROPHILS % 88.4 % (40.0-76.0); RED BLOOD CELL COUNT 3.22 mill/uL (4.2-5.4); RED CELL DISTRIBUTION WIDTH 15.5 % (11.6-14.6)
[2017-07-10 06:44] LABS: CARBON DIOXIDE 23 mEq/L (21-32); CHLORIDE 111 mEq/L (98-107)
[2017-07-10 07:30] LABS: MEAN PLATELET VOLUME 9.9 fl (7.4-10.4); PLATELET 7 x1000/uL (130-400)
[2017-07-10 08:00] LABS: BG BASE EXCESS -4.1 mmol/L (-2.0-2.0); BG CARBOXYHEMOGLOBIN 0.2 % (0.5-1.5); BG DEOXYHEMOGLOBIN 4.3 % (0.0-5.0); BG FRACTION INSPIRED OXYGEN 30; BG HCO3 ACT 21.1 mmol/L (22.0-26.0); BG METHEMOGLOBIN 0.3 % (0.0-1.5); BG OXYGEN SATURATION 95.7 % (92.0-98.5); BG OXYHEMOGLOBIN 95.2 % (94.0-97.0); BG PCO2 38.7 mmHg (35.0-45.0); BG PH 7.354 (7.350-7.450); BG PO2 80.9 mmHg (75.0-100.0); BG SAMPLE SITE RIGHT RADIAL; BG TIDAL VOLUME(mL) 550 mL; BG TOTAL HEMOGLOBIN 9.6 g/dL (12.0-18.0); BG VENT MODE VENT - A/C; BG VENT RATE 16 set
[2017-07-10] MEDS: FLUCONAZOLE 400MG/200ML BAG 200 ML IV SCH (15:11)
[2017-07-10] MEDS: MORPHINE SULFATE 250 MG in DEXT 5% WATER 240 ML IV PRN (17:48)
[2017-07-11] VITALS: BP 97/61
[2017-07-11 01:00] VITALS: BP 91/46
[2017-07-11 02:00] VITALS: BP 89/48
[2017-07-11 03:00] VITALS: BP 85/40
[2017-07-11] MEDS: MORPHINE SULFATE 250 MG in DEXT 5% WATER 240 ML IV PRN (03:22)
[2017-07-11 04:00] VITALS: BP 79/44
[2017-07-11 05:00] VITALS: BP 78/38
== END 2017-07-11 06:45 | disposition expired | DRG 720 ==
LOC: ER 17:43 → CVICU 20:03 → EDBEDREQTM 20:46 → EDBEDREQ 20:46 → CVICU 21:45
PROVIDERS: ADMIT Family Medicine; ATTEND Family Medicine
PROC: 5A1955Z Respiratory Ventilation, Greater than 96 Consecutive Hours (ICD-10-PCS; principal; 2017-06-27)
PROC: 30233N1 Transfusion of Nonautologous Red Blood Cells into Peripheral Vein, Percutaneous Approach (ICD-10-PCS; 2017-06-27)
PROC: 0BH17EZ Insertion of Endotracheal Airway into Trachea, Via Natural or Artificial Opening (ICD-10-PCS; 2017-06-27)
PROC: 30233R1 Transfusion of Nonautologous Platelets into Peripheral Vein, Percutaneous Approach (ICD-10-PCS; 2017-06-28)
DX: A41.52 Sepsis due to Pseudomonas (principal); J96.00 Acute respiratory failure, unspecified whether with hypoxia or hypercapnia; J69.0 Pneumonitis due to inhalation of food and vomit; R65.21 Severe sepsis with septic shock; G93.41 Metabolic encephalopathy; E43 Unspecified severe protein-calorie malnutrition; J90 Pleural effusion, not elsewhere classified; J15.1 Pneumonia due to Pseudomonas; K66.8 Other specified disorders of peritoneum; E87.1 Hypo-osmolality and hyponatremia; D68.9 Coagulation defect, unspecified; C78.00 Secondary malignant neoplasm of unspecified lung; Z99.81 Dependence on supplemental oxygen; C53.9 Malignant neoplasm of cervix uteri, unspecified; D61.818 Other pancytopenia; E87.6 Hypokalemia; K92.2 Gastrointestinal hemorrhage, unspecified; J45.909 Unspecified asthma, uncomplicated; L02.211 Cutaneous abscess of abdominal wall; N39.0 Urinary tract infection, site not specified; D69.6 Thrombocytopenia, unspecified; J98.2 Interstitial emphysema; Z16.39 Resistance to other specified antimicrobial drug; N73.9 Female pelvic inflammatory disease, unspecified; L76.82 Other postprocedural complications of skin and subcutaneous tissue; Y83.8 Other surgical procedures as the cause of abnormal reaction of the patient, or of later complication, without mention of misadventure at the time of the procedure; Y92.89 Other specified places as the place of occurrence of the external cause; Z92.3 Personal history of irradiation; Z87.891 Personal history of nicotine dependence; Z93.3 Colostomy status; Z90.721 Acquired absence of ovaries, unilateral; Z92.21 Personal history of antineoplastic chemotherapy; Z68.30 Body mass index [BMI] 30.0-30.9, adult
CPT/HCPCS: 31500; 36415; 36600; 71010; 71250; 74000; 74176; 80048; 80053; 80076; 80150; 80202; 81001; 81025; 82270; 82375; 82805; 82962; 83605; 83690; 83735; 83880; 84100; 84134; 84478; 84484; 85025; 85027; 85610; 85730; 86850; 86900; 86920; 86945; 87040; 87070; 87077; 87086; 87186; 87493; 93005; 93970; 94002; 94003; 94640; 94664; 96365; 99291; A6261; C9113; J0278; J0692; J1170; J1450; J1815; J2060; J2185; J2250; J2270; J2274; J2370; J2543; J2704; J3010; J3370; J3430; J3475; J3480; J3490; J7030; J7040; J7050; J7060; J7611; J7620; P9016; P9021; P9034; A4315